=== PATIENT | female | born 1955 | race Caucasian/White ===

== ENCOUNTER 2016-12-24 13:27 | Emergency (ER) | payer MEDICAID ==
[~2016-12-24] VITALS: Ht 162.6 cm; Wt 64.4 kg
[2016-12-24 13:27] VITALS: BP_SYST 165
--- NOTE | 2016-12-24 13:27 | NUR ---
BROUGHT BACK TO BED #4, TRIAGED. REPORT GIVEN TO NING
--- NOTE | 2016-12-24 13:48 | NUR ---
pt c/o rectal bleeding from the hemorrhoid off and on for three weeks.denies any pain. awake,alerted x4.
--- NOTE | 2016-12-24 13:49 | NUR ---
ER at bedside examining patient.
--- NOTE | 2016-12-24 14:26 | NUR ---
I shaperoned Dr maloney for rectal exam. a hemorriord noted outside of rectum. no active bleeding noted.
--- NOTE | 2016-12-24 14:40 | NUR ---
Patient given written and verbal discharge instructions and verbalizes understanding. ER MD discussed with patient the results and treatment provided. Given copies of tests performed in ER. Patient in stable condition. ID arm band removed. Rx of medications given. Patient educated on pain management and to follow up with PMD. Pain Scale 0/10. Opportunity for questions provided and answered.
== END 2016-12-24 14:42 | disposition home or self-care (01) ==
LOC: SED 13:27
DX: K64.9 Unspecified hemorrhoids (principal)
CPT/HCPCS: 99283

== ENCOUNTER 2017-03-14 12:28 | Emergency (ER) | payer MEDICAID ==
[~2017-03-14] VITALS: Ht 162.6 cm; Wt 66.7 kg
[2017-03-14 12:39] VITALS: BP_SYST 159
[2017-03-14 13:35] LABS: BASOPHILS # (AUTO) 0.1 K/uL (0.0-0.2); BASOPHILS % (AUTO) 1.1 % (0.0-2.0); EOSINOPHILS % (AUTO) 0.7 % (0.0-4.0); HEMOGLOBIN 15.7 g/dL (12.0-16.0); LYMPHOCYTES # (AUTO) 1.5 K/uL (1.0-5.5); MEAN CORPUSCULAR HEMOGLOBIN 28 pg (27-31); MEAN CORPUSCULAR HGB CONC 33 % (32-36); MEAN CORPUSCULAR VOLUME 84 fL (79.0-98.0); MONOCYTES # (AUTO) 0.5 K/uL (0.0-1.0); MONOCYTES % (AUTO) 7.8 % (1.7-9.3); NEUTROPHILS # (AUTO) 4.3 K/uL (1.8-7.7); NEUTROPHILS % (AUTO) 66.4 % (40.0-70.0); PLATELET COUNT (AUTO) 280 K/uL (130-430); RED BLOOD CELL COUNT(AUTO) 5.68 MIL/uL (4.2-6.2); RED CELL DISTRIBUTION WIDTH 12.2 % (9.0-15.0); WHITE BLOOD COUNT (AUTO) 6.4 K/uL (4.8-10.8)
[2017-03-14 13:38] LABS: CALCIUM 9.7 mg/dL (8.4-11.0); CREATININE 0.72 mg/dL (0.55-1.30); POTASSIUM 3.7 mmol/L (3.5-5.1)
[2017-03-14 13:43] LABS: ALBUMIN 4.5 g/dL (3.4-4.8); INR 0.9 (0.8-1.2); PROTHROMBIN TIME 10.1 SECS (9.5-12.5); TOTAL BILIRUBIN 0.7 mg/dL (0.0-1.0); TOTAL PROTEIN, SERUM 8.1 g/dL (6.4-8.3)
[2017-03-14 14:05] VITALS: BP_SYST 148
== END 2017-03-14 14:05 | disposition home or self-care (01) ==
LOC: SED 12:28
DX: J32.9 Chronic sinusitis, unspecified (principal); R03.0 Elevated blood-pressure reading, without diagnosis of hypertension; Z88.2 Allergy status to sulfonamides; Z98.890 Other specified postprocedural states
CPT/HCPCS: 36415; 70450-TC; 80053; 85025; 85610-TC; 85730-TC; 99285

== ENCOUNTER 2017-04-10 09:07 | Emergency (ER) | payer MEDICAID ==
[~2017-04-10] VITALS: Ht 162.6 cm; Wt 66.7 kg
[2017-04-10 09:07] VITALS: BP_SYST 158
--- NOTE | 2017-04-10 09:07 | NUR ---
BROUGHT BACK TO BED #5 AND TRIAGED. REPORT GIVEN TO DR MARVIN PAZ AT BEDSIDE FOR EVALUATION
--- NOTE | 2017-04-10 09:10 | NUR ---
ER Dr. Amado at bedside examining patient.
--- NOTE | 2017-04-10 09:15 | NUR ---
Pt AAOx4, able to verbalize needs. Pt states she was bit by a mouse at home on third finger on left hand, also c/o "on and off chest pain maybe caused by anxiety" and does not radiate. No swelling, open skin, or redness noted on 3rd finger of left hand. Pt also states she has discomfort in ear unrelated to mouse bite. No other complaints or injuries per pt or noted.
[2017-04-10] MEDS ORDERED: ASPIRIN 325 MG TABLET PO ONE (09:30)
[2017-04-10] MEDS ORDERED: DIPH-TET-PERTUS Vaccine 0.5 ML VIAL (ADACEL) I.M. ONE (09:30)
[2017-04-10 09:58] LABS: BASOPHILS % (AUTO) 0.5 % (0.0-2.0); EOSINOPHILS % (AUTO) 0.3 % (0.0-4.0); HEMATOCRIT 44.3 % (36-48); HEMOGLOBIN 14.7 g/dL (12.0-16.0); LYMPHOCYTES # (AUTO) 1.4 K/uL (1.0-5.5); LYMPHOCYTES % (AUTO) 20.8 % (20.5-51.5); MEAN CORPUSCULAR HEMOGLOBIN 28 pg (27-31); MEAN CORPUSCULAR HGB CONC 33 % (32-36); MEAN CORPUSCULAR VOLUME 85 fL (79.0-98.0); MONOCYTES # (AUTO) 0.6 K/uL (0.0-1.0); MONOCYTES % (AUTO) 8.4 % (1.7-9.3); NEUTROPHILS # (AUTO) 4.9 K/uL (1.8-7.7); PLATELET COUNT (AUTO) 269 K/uL (130-430); RED BLOOD CELL COUNT(AUTO) 5.22 MIL/uL (4.2-6.2); RED CELL DISTRIBUTION WIDTH 12.2 % (9.0-15.0); WHITE BLOOD COUNT (AUTO) 6.9 K/uL (4.8-10.8)
[2017-04-10 10:06] LABS: CREATININE 0.71 mg/dL (0.55-1.30); POTASSIUM 4.4 mmol/L (3.5-5.1)
[2017-04-10 10:10] LABS: PROTHROMBIN TIME 10.9 SECS (9.5-12.5)
[2017-04-10 10:11] LABS: ALBUMIN 4.1 g/dL (3.4-4.8); TOTAL BILIRUBIN 0.7 mg/dL (0.0-1.0); TOTAL PROTEIN, SERUM 7.4 g/dL (6.4-8.3)
--- NOTE | 2017-04-10 10:15 | NUR ---
Pt states no acute distress or pain at this time.
--- NOTE | 2017-04-10 11:45 | NUR ---
Pt c/o "ear discomfort" and requested for ear check up. Dr. Amado at bedside examining pt's ears.
[2017-04-10 12:07] VITALS: BP_SYST 130
--- NOTE | 2017-04-10 12:07 | NUR ---
Patient given written and verbal discharge instructions and verbalizes understanding. ER MD discussed with patient the results and treatment provided. Patient in stable condition. ID arm band removed. Rx of bacitracin and tylenol given. Patient educated on pain management and to follow up with PMD. Pain Scale 0/10. Opportunity for questions provided and answered.
== END 2017-04-10 12:07 | disposition home or self-care (01) ==
LOC: SED 09:07
DX: S61.213A Laceration without foreign body of left middle finger without damage to nail, initial encounter (principal); F41.9 Anxiety disorder, unspecified; Z88.2 Allergy status to sulfonamides; W53.01XA Bitten by mouse, initial encounter; Y93.89 Activity, other specified; Y92.098 Other place in other non-institutional residence as the place of occurrence of the external cause; Y99.8 Other external cause status
CPT/HCPCS: 36415; 71010; 80053; 82550-TC; 83735-TC; 84484; 85025; 85610-TC; 85730-TC; 90715; 93005; 99285